=== PATIENT | female | born 1970 | race American Indian/Alaskan Native ===

== ENCOUNTER 2018-03-29 17:36 | Emergency (ER) | payer MEDICARE, OTHER ==
[2018-03-29 18:11] VITALS: BP 158/95
[2018-03-29] MEDS ORDERED: MOTRIN PO ONE (18:12)
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
== END 2018-03-29 22:23 | disposition home or self-care (01) ==
LOC: ED 17:36
DX: M62.830 Muscle spasm of back (principal); M54.2 Cervicalgia; V43.52XA Car driver injured in collision with other type car in traffic accident, initial encounter; Y93.89 Activity, other specified; Y99.8 Other external cause status; Y92.488 Other paved roadways as the place of occurrence of the external cause
CPT/HCPCS: 99282